=== PATIENT | female | born 1960 | race Caucasian/White ===

== ENCOUNTER 2024-02-03 23:45 | Emergency (ER) | payer OTHER, SELFPAY ==
[2024-02-03 23:46] VITALS: BP 158/98; PULSE 66; RESP 20; TEMP 36.5; O2SAT 97; BMI 30.2
[2024-02-03 23:56] VITALS: BP 154/125; PULSE 60; O2SAT 93
--- NOTE | 2024-02-04 00:19 | ED_ITS ---
HPI - Extremity Problem General: Chief complaint: Extremity Injury, Lower Stated complaint: legs and hip pain Time Seen by Provider: 02/03/24 23:58 Source: patient Mode of arrival: ambulatory Limitations: no limitations History of Present Illness: Patient is a 63-year-old female who presents the emergency department complaining of right lower extremity pain and low back pain that has been bothering her for multiple years. No recent trauma or injury, states that she has not slept in a couple of days due to how severe the pain is. She did receive a shot of steroids at urgent care the day and prescribed baclofen, states the shot did help initially but has worn off and the baclofen does not seem to be helping. Also is reporting some numbness to her right lower extremity, no calf pain, no history of blood clots, no other concerning symptoms at this time. Complaining of severe 10/10 pain at this time that comes in waves. MD Complaint: extremity pain Onset (ago): year(s) Pain Consistency: intermittent Location: right and lower extremity Severity scale (1-10): 10 Quality: stabbing and sharp Radiation: distal Exacerbating factors: range of motion, weight bearing, walking and exertion Associated symptoms: Deny chest pain, fever(s) or rash Related Data Previous Rx's Medication Instructions Recorded prednisone 20 mg tablet 60 mg (3 x 20 mg) PO ONCE 5 days 02/04/24 #15 tabs Allergies Allergy/AdvReac Type Severity Reaction Status Date / Time No Known Allergies Allergy Verified 02/03/24 23:58 Review of Systems General: Reports: 10 or more systems reviewed and unremarkable except in HPI and below Const: Denies: fever(s) or chills Card: Denies: chest pain Resp: Denies: dyspnea or productive cough GI: Denies: abdominal pain, nausea, vomiting or diarrhea : Denies: flank pain Musc: Reports: back pain and extremity pain; Denies: neck pain, extremity swelling, joint pain, joint swelling, joint redness, joint warmth, limited range of motion or muscle weakness Skin/Breast: Denies: rash Neuro: Reports: numbness in extremities; Denies: headache(s) or weakness in extremities Physical Exam Const: COMMON NORMALS: patient oriented x3, no limitations, healthy appearing, alert and well nourished OTHER: Patient lying in ER bed, nontoxic-appearing and occasionally twitching from pain HENMT: COMMON NORMALS: normocephalic and atraumatic HEAD & SCALP: normocephalic and atraumatic Neck/C-Spine: COMMON NORMALS: full ROM, supple and no meningeal signs Resp: COMMON NORMALS: normal respiratory effort, No use of accessory muscles and clear to auscultation bilaterally AUSCULTATION: clear to auscultation bilaterally Cardio: COMMON NORMALS: regular rate and regular rhythm RATE: regular rate RHYTHM: regular rhythm Back/Pelvis: OTHER: Straight leg raise testing is positive on the right with very minimal lifting of the right lower extremity. Mild reproducible tenderness to palpation of the lumbar spinous process, severe reproducible tenderness to palpation of the right lower back. Extremity: COMMON NORMALS: full ROM, capillary refill normal, no joint enlargement, no clubbing, cyanosis or edema, no calf tenderness and no pedal edema NARRATIVE EXTREMITY EXAM: DTRs intact. 2+ DP/PT pulses distally. Varicosities distally. No calf swelling, tenderness to palpation of the right calf, or other signs of DVT. Neuro: COMMON NORMALS: patient oriented x3, moves all extremities, no focal motor deficits and no sensory deficits noted SENSORIUM/ORIENTATION: Yes alert MENINGEAL SIGNS: Yes no meningeal signs Skin: COMMON NORMALS: no rashes or lesions noted GENERAL SKIN EXAM: no rashes or lesions noted Course Vital Signs: Vital signs: Vital Signs Temperature 97.7 F 02/03/24 23:46 Pulse Rate 66 02/03/24 23:46 Respiratory Rate 20 H 02/03/24 23:46 Blood Pressure 158/98 02/03/24 23:46 Pulse Oximetry 97 02/03/24 23:46 Oxygen Delivery Me thod Room Air 02/03/24 23:46 MDM - Extremity (Nontraumatic) Medical Decision Making Patient has a history of longstanding sciatica of the right lower extremity, states that she has not been sleeping due to how severe the pain has been recently. Does note relief from the shot that she received of steroid recently in urgent care, she will be given shots of Decadron again as well as Toradol and Norflex, and will prescribe her short course of steroid taper to take at home. Also, as she does not have a primary care, will refer her to Ortho/spine at her request for further evaluation as she states she has been dealing with this for almost a decade. She had no red flag back symptoms to report, and no concerning physical exam findings that warrant imaging or further workup at this time. Reasons to return discussed. No radiology studies performed this visit Discharge Plan Discharge Patient Disposition: Home Clinical Impression: Right lumbar radiculopathy Condition: Stable Prescriptions: New prednisone 20 mg tablet 60 mg PO ONCE 5 Days Qty: 15 0RF Discharge Orders: Discharge ED (Routine); Ordered 02/04/24 Ordered By: Topher Macias Referrals: Chris Brady DO [Family Provider] - Patient Instructions: Lumbar Radiculopathy (ED) Activity Restrictions/Additional Instructions: Take steroids as prescribed. Please continue taking your baclofen. Ibuprofen as well, and gentle range of motion exercises as you can tolerate. Ice/heat to your low back. Follow-up with Ortho/spine, and return with any new or worseni ng. Coding Level of Care Code ED Digital Marketing Project Manager for Talita Grullon
[2024-02-04] MEDS: ketorolac 60 mg/2 mL INJ IM (00:22)
[2024-02-04] MEDS: orphenadrine 30 mg/mL Inj 2 mL 60 MG IM (00:23)
[2024-02-04] MEDS: dexamethasone 10 mg/mL INJ IM (00:24)
[2024-02-04 00:46] VITALS: BP 137/105; PULSE 56; O2SAT 94
--- NOTE | 2024-02-05 09:51 | DCPLANNER ---
messaged ortho for er f/u
== END 2024-02-04 00:45 | disposition home or self-care (01) ==
PROVIDERS: Emergency Provider Physician Assistant; Family Provider Family Medicine
DX: M54.16 Radiculopathy, lumbar region (principal)
CPT/HCPCS: 96372; 99284; J1100; J1885; J2360

== ENCOUNTER 2024-02-10 09:47 | Observation (INO) | payer OTHER, SELFPAY ==
[2024-02-10] VITALS (10 sets, daily range): BP systolic 112–174; BP diastolic 79–107; PULSE 59–90; RESP 16–18; TEMP 36.4–36.8; O2SAT 90–99; BMI 34.5
--- NOTE | 2024-02-10 09:49 | XR_ITS ---
WS: [id number] Exam: XR chest 1V portable [id number] Date/Time of Exam: 02/10/2024 10:06 AM Reason For Exam: chest pain No priors. Lungs are clear and fully inflated. Probable mild cardiac enlargement. No pleural effusions. The medi astinum is normal in contour. Advanced DJD of both shoulders. XR/XR chest 1V portable [id number] IMPRESSION: 1. Mild cardiac enlargement. No acute process.
--- NOTE | 2024-02-10 09:51 | ECG_ITS ---
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
--- NOTE | 2024-02-10 09:55 | ED_ITS ---
Documented by User: MARISELA Pope 02/10/24 13:20 HPI - Chest Pain 2 General: Chief Complaint: Chest Pain Stated Complaint: chest pain Time Seen by Provider: 02/10/24 09:49 Source: patient Mode of arrival: ambulatory Limitations: no limitations History of Present Illness: Patient is a nice 63-year-old female presents to ED today with a complaint of chest pain. Patient states she was walking in [facility] to the pharmacy to orange picker a prescription as she has been having some right sided sciatic pains over the past week or so. She states she began developing pain to the left side of her chest with radiation into her shoulder blades thus called 911. She was given 3 nitro and route by EMS as well as aspirin and upon my initial assessment of patient, she is pain-free. Patient tells me she was diagnosed with a heart attack at the age of 30 but then later told by Dr. 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 She does not have any cardiac stenting. She states she has not had any cardiac issues since then. She has no other chronic illnesses that she is aware of but admittedly does not have a primary care provider. Patient is not complaining of shortness of breath or difficulty breathing. She has been taking large amounts of anti-inflammatories/ibuprofen due to her sciatic pain. MD complaint: chest pain and other (upper abdomen?) Onset (ago): hour(s) Timing of current episode: now resolved (after nitro by EMS) Prior episodes: No Onset: other (walking in [facility]) Pain location: left chest Pain radiation: back Relieving factors: nitroglycerin Exacerbating factors: nothing Associated symptoms: Deny abdominal pain, dyspnea, fever(s), nausea, palpitations, syncope or vomiting Treatment prior to arrival: aspirin and nitroglycerin Risk Factors: Thoracic aortic dissection risk factors: none Related Data Home Medications Medication Instructions Recorded Confirmed ibuprofen 200 mg capsule 200 mg PO Q6H PRN Pain 02/09/24 02/10/24 baclofen 5 mg tablet 5 mg PO TID PRN muscle spasms 02/10/24 02/10/24 diclofenac sodium 1 % topical gel 2 g topical QID 02/10/24 02/10/24 Allergies Allergy/AdvReac Type Severity Reaction Status Date / Time No Known Allergies Allergy Verified 02/09/24 08:36 Review of Systems 2 Const: Denies: fever(s), chills, body aches, fatigue or malaise Eyes: Denies: change in vision or blurry vision Card: Reports: chest pain; Denies: palpitations, irregular heart rhythm, edema, swelling of feet/ankles, lightheadedness, syncope, pre-syncope, dyspnea on exertion, orthopnea, leg pain with exertion or acrocyanosis Resp: Denies: dyspnea, productive cough or pain on inspiration GI: Denies: abdominal pain, nausea, vomiting, heartburn or diarrhea : Denies: flank pain, difficulty voiding, dysuria, urinary frequency, urinary urgency or urinary hesitancy Musc: Reports: back pain (R lower back/sciatica); Denies: neck pain, extremity pain, extremity swelling, joint pain or joint swelling Skin/Breast: Denies: rash Neuro: Denies: headache(s), numbness in extremities, weakness in extremities, sensory changes or dizziness PFSH ED 2 PFSH: Medical History (Updated 02/10/24 @ 17:48 by Pattie Pineda MD) 1 para 1 Chronic low back pain with sciatica Surgical History (Updated 02/10/24 @ 17:38 by Pattie Pineda MD) Hx of repair of right rotator cuff x2 Hx of repair of left rotator cuff x1 H/O laparoscopy with large ovarian cyst/benign tumor removal History of hysterectomy Family History (Updated 02/10/24 @ 17:39 by Pattie Pineda MD) Father CAD (coronary artery disease) quadruple bypass age 63 Social History (Updated 02/10/24 @ 17:39 by Pattie Pineda MD) Smoking and tobacco/nicotine status: former use of tobacco/nicotine Alcohol intake: never Substance/Drug Use: never Lives independently: Yes Physical Exam 2 Const: COMMON NORMALS: no acute distress, patient oriented x3, no limitations, alert and well nourished GENERAL APPEARANCE: cooperative NUTRITIONAL APPEARANCE: overweight ORIENTATION/CONSCIOUSNESS: Yes awake, Yes oriented to person, Yes oriented to place and Yes oriented to time HENMT: COMMON NORMALS: normocephalic and atraumatic HEAD & SCALP: n ormocephalic and atraumatic Neck/C-Spine: COMMON NORMALS: full ROM, no lymphadenopathy, supple and no meningeal signs Chest: COMMONS NORMALS: normal inspection of the chest Chest images (female): 1. points to area of discomfort Resp: COMMON NORMALS: normal respiratory effort and clear to auscultation bilaterally AUSCULTATION: clear to auscultation bilaterally Cardio: COMMON NORMALS: regular rate and regular rhythm RATE: regular rate RHYTHM: regular rhythm GI: COMMON NORMALS: Normal to inspection, nondistended, normoactive bowel sounds present, Soft to palpation, No hepatosplenomegaly present and no masses PALPATION: Yes Soft to palpation, Yes Tenderness to palpation present (GI) (epigastric/L upper-mild), No Guarding due to palpation present (GI), No Rigid due to palpation and Yes No hepatosplenomegaly present : COMMON NORMALS: Yes no CVA tenderness BLADDER/KIDNEY EXAM: Yes no CVA tenderness Back/Pelvis: COMMON NORMALS: no CVA tenderness and thoracic and lumbar spine normal to inspection Extremity: COMMON NORMALS: normal to inspection GENERAL: Yes normal exam except as noted Neuro: HEDY COMA SCALE: document GCS findings Valders coma scale eye opening: Spontaneous Hedy coma scale verbal response: Orientated Hedy coma scale motor response: Obey commands Valders coma scale total score: 15 COMMON NORMALS: patient oriented x3, moves all extremities, no focal motor deficits and no sensory deficits noted SENSORIUM/ORIENTATION: Yes alert, Yes oriented to person, Yes oriented to place and Yes oriented to time MENINGEAL SIGNS: Yes no meningeal signs Skin: COMMON NORMALS: no rashes or lesions noted GENERAL SKIN EXAM: no rashes or lesions noted Course 2 Consultations: Consultation #1: Dr. Pineda-accepts admission to [facility] Vital Signs: Vital signs: Vital Signs Temperature 97.6 F 02/11/24 04:00 Pulse Rate 57 L 02/11/24 04:00 Respiratory Rate 16 02/11/24 04:00 Blood Pressure 114/74 02/11/24 04:00 Pulse Oximetry 95 02/11/24 04:00 Oxygen Delivery Me thod Room Air 02/11/24 04:00 MDM - Chest Pain Medical Decision Making Patient is a nice 63-year-old female with no known significant past medical history here for left-sided chest pain alleviated by nitroglycerin given by EMS. She has been pain-free throughout her emergency department stay. Her initial troponin was elevated at 19. This did trend down. She does have T wave inversions involving her anterior leads on EKG. No previous for comparison. Spoke to Dr. Gomez who is recommending admission. Spoke to Dr. Pineda who will admit her to observation. CXR showing some mild cardic enlargement-adding BNP. Medical Records I reviewed the patient's medical records. Lab Data I reviewed the patient's lab results. 02/10/24 10:08 02/10/24 10:08 Radiology Impressions Chest X-Ray 02/10/24 09:49 IMPRESSION: 1. Mild cardiac enlargement. No acute process. Laboratory Results WBC 8.89 10^3/uL (3.29-11.43) 02/10/24 10:08 RBC 4.94 10^6/uL (3.85-5.65) 02/10/24 10:08 Hgb 16.50 g/dL (11.27-16.99) 02/10/24 10:08 Hct 48.1 % (36-47) H 02/10/24 10:08 MCV 97.4 fl (85-98) 02/10/24 10:08 MCH 33.4 pg (27-33) H 02/10/24 10:08 MCHC 34.3 g/dL (30-55) 02/10/24 10:08 RDW 13.0 % (12.1-15.1) 02/10/24 10:08 Plt Count 315 10^3/cmm (157-399) 02/10/24 10:08 MPV 11.1 fL (7.4-10.4) H 02/10/24 10:08 Neut % (Auto) 41.9 % 02/10/24 10:08 Lymph % (Auto) 49.8 % 02/10/24 10:08 [place] % (Auto) 5.6 % 02/10/24 10:08 Eos % (Auto) 1.6 % 02/10/24 10:08 Baso % (Auto) 0.3 % 02/10/24 10:08 Neut # (Auto) 3.72 10^3/uL (1.8-7.7) 02/10/24 10:08 Lymph # (Auto) 4.4 10^3/uL (0.8-4.8) 02/10/24 10:08 [place] # (Auto) 0.5 10^3/uL (0.2-0.9) 02/10/24 10:08 Eos # (Auto) 0.1 10^3/uL (0.0-0.8) 02/10/24 10:08 Baso # (Auto) 0.0 10^3/uL (0.0-0.1) 02/10/24 10:08 Nucleated RBC % (auto) 0 % 02/10/24 10:08 Nucleated RBCs # 0.0 /100WBC 02/10/24 10:08 Sodium 140 mmol/L (136-145) 02/10/24 10:08 Potassium 3.8 mmol/L (3.5-5.1) 02/10/24 10:08 Chloride 103 mmol/L (98-107) 02/10/24 10:08 Carbon Dioxide 23 mmol/L (22-29) 02/10/24 10:08 Anion Gap 17.8 (5-19) 02/10/24 10:08 BUN 15 mg/dL (8-23) 02/10/24 10:08 Creatinine 0.7 mg/dL (0.5-0.9) 02/10/24 10:08 GFR Calculation 84.5 mL/min (90-130) L 02/10/24 10:08 Glucose 91 mg/dL (65-115) 02/10/24 10:08 Calculated Osmolality 290 mOsm/kg (285-295) 02/10/24 10:08 Calcium 9.6 mg/dL (8.5-10.5) 02/10/24 10:08 Total Bilirubin 0.5 mg/dL (0.15-1.2) 02/10/24 10:08 AST 14 U/L (0-32) 02/10/24 10:08 ALT 16 U/L (0-33) 02/10/24 10:08 Alkaline Phosphatase 90 U/L (35-105) 02/10/24 10:08 Troponin T Baseline 19 ng/L (0-10) H 02/10/24 10:08 Troponin T 120 Minute 16.58 ng/L (0-10) H 02/10/24 12:10 Delta Troponin T -2.42 ABS# (0-10) L 02/10/24 12:10 NT-Pro-B Natriuret Pep 142 pg/mL (0-125) H 02/10/24 12:10 Total Protein 7.7 g/dL (6.6-8.7) 02/10/24 10:08 Albumin 4.7 g/dL (3.5-5.2) 02/10/24 10:08 Globulin 3.0 g/dL (1.3-4.6) 02/10/24 10:08 All radiology interpretation(s) finalized by discharge Discharge Plan Discharge Patient Disposition: Placed in Observation Admit Provider: Pattie Pineda Clinical Impression: Chest pain Qualifiers: Chest pain type: unspecified Qualified Code(s): R07.9 - Chest pain, unspecified Coding Level of Care Code ED Block Sorter for Chg Fwd Documented by User: Marek Gomez DO 02/11/24 05:32 HPI - Chest Pain 2 General: Chief Complaint: Chest Pain Stated Complaint: chest pain Time Seen by Provider: 02/10/24 09:49 Related Data Home Medications Medication Instructions Recorded Confirmed ibuprofen 200 mg capsule 200 mg PO Q6H PRN Pain 02/09/24 02/10/24 baclofen 5 mg tablet 5 mg PO TID PRN muscle spasms 02/10/24 02/10/24 diclofenac sodium 1 % topical gel 2 g topical QID 02/10/24 02/10/24 Allergies Allergy/AdvReac Type Severity Reaction Status Date / Time No Known Allergies Allergy Verified 02/09/24 08:36 PFSH ED 2 PFSH: Medical History (Updated 02/10/24 @ 17:48 by Pattie Pineda MD) 1 para 1 Chronic low back pain with sciatica Surgical History (Updated 02/10/24 @ 17:38 by Pattie Pineda MD) Hx of repair of right rotator cuff x2 Hx of repair of left rotator cuff x1 H/O laparoscopy with large ovarian cyst/benign tumor removal History of hysterectomy Family History (Updated 02/10/24 @ 17:39 by Pattie Pineda MD) Father CAD (coronary artery disease) quadruple bypass age 63 Social History (Updated 02/10/24 @ 17:39 by Pattie Pineda MD) Smoking and tobacco/nicotine status: former use of tobacco/nicotine Alcohol intake: never Substance/Drug Use: never Lives independently: Yes Physical Exam 2 Chest: Chest images (female): 1. points to area of discomfort Neuro: HEDY COMA SCALE: document GCS findings Hedy coma scale total score: 15 Course 2 Vital Signs: Vital signs: Vital Signs Temperature 97.6 F 02/11/24 04:00 Pulse Rate 57 L 02/11/24 04:00 Respiratory Rate 16 02/11/24 04:00 Blood Pressure 114/74 02/11/24 04:00 Pulse Oximetry 95 02/11/24 04:00 Oxygen Delivery Me thod Room Air 02/11/24 04:00 MDM - Chest Pain Medical Decision Making Patient is a nice 63-year-old female with no known significant past medical history here for left-sided chest pain alleviated by nitroglycerin given by EMS. She has been pain-free throughout her emergency department stay. Her initial troponin was elevated at 19. This did trend down. She does have T wave inversions involving her anterior leads on EKG. No previous for comparison. Spoke to Dr. Gomez who is recommending admission. Spoke to Dr. Pineda who will admit her to observation. CXR showing some mild cardic enlargement-adding BNP. Chart reviewed and patient discussed with midlevel. Agree with assessment and plan. Lab Data 02/10/24 10:08 02/10/24 10:08 Radiology Impressions Chest X-Ray 02/10/24 09:49 IMPRESSION: 1. Mild cardiac enlargement. No acute process. Laboratory Results WBC 8.89 10^3/uL (3.29-11.43) 02/10/24 10:08 RBC 4.94 10^6/uL (3.85-5.65) 02/10/24 10:08 Hgb 16.50 g/dL (11.27-16.99) 02/10/24 10:08 Hct 48.1 % (36-47) H 02/10/24 10:08 MCV 97.4 fl (85-98) 02/10/24 10:08 MCH 33.4 pg (27-33) H 02/10/24 10:08 MCHC 34.3 g/dL (30-55) 02/10/24 10:08 RDW 13.0 % (12.1-15.1) 02/10/24 10:08 Plt Count 315 10^3/cmm (157-399) 02/10/24 10:08 MPV 11.1 fL (7.4-10.4) H 02/10/24 10:08 Neut % (Auto) 41.9 % 02/10/24 10:08 Lymph % (Auto) 49.8 % 02/10/24 10:08 [place] % (Auto) 5.6 % 02/10/24 10:08 Eos % (Auto) 1.6 % 02/10/24 10:08 Baso % (Auto) 0.3 % 02/10/24 10:08 Neut # (Auto) 3.72 10^3/uL (1.8-7.7) 02/10/24 10:08 Lymph # (Auto) 4.4 10^3/uL (0.8-4.8) 02/10/24 10:08 [place] # (Auto) 0.5 10^3/uL (0.2-0.9) 02/10/24 10:08 Eos # (Auto) 0.1 10^3/uL (0.0-0.8) 02/10/24 10:08 Baso # (Auto) 0.0 10^3/uL (0.0-0.1) 02/10/24 10:08 Nucleated RBC % (auto) 0 % 02/10/24 10:08 Nucleated RBCs # 0.0 /100WBC 02/10/24 10:08 Sodium 140 mmol/L (136-145) 02/10/24 10:08 Potassium 3.8 mmol/L (3.5-5.1) 02/10/24 10:08 Chloride 103 mmol/L (98-107) 02/10/24 10:08 Carbon Dioxide 23 mmol/L (22-29) 02/10/24 10:08 Anion Gap 17.8 (5-19) 02/10/24 10:08 BUN 15 mg/dL (8-23) 02/10/24 10:08 Creatinine 0.7 mg/dL (0.5-0.9) 02/10/24 10:08 GFR Calculation 84.5 mL/min (90-130) L 02/10/24 10:08 Glucose 91 mg/dL (65-115) 02/10/24 10:08 Calculated Osmolality 290 mOsm/kg (285-295) 02/10/24 10:08 Calcium 9.6 mg/dL (8.5-10.5) 02/10/24 10:08 Total Bilirubin 0.5 mg/dL (0.15-1.2) 02/10/24 10:08 AST 14 U/L (0-32) 02/10/24 10:08 ALT 16 U/L (0-33) 02/10/24 10:08 Alkaline Phosphatase 90 U/L (35-105) 02/10/24 10:08 Troponin T Baseline 19 ng/L (0-10) H 02/10/24 10:08 Troponin T 120 Minute 16.58 ng/L (0-10) H 02/10/24 12:10 Delta Troponin T -2.42 ABS# (0-10) L 02/10/24 12:10 NT-Pro-B Natriuret Pep 142 pg/mL (0-125) H 02/10/24 12:10 Total Protein 7.7 g/dL (6.6-8.7) 02/10/24 10:08 Albumin 4.7 g/dL (3.5-5.2) 02/10/24 10:08 Globulin 3.0 g/dL (1.3-4.6) 02/10/24 10:08 Discharge Plan Discharge Patient Disposition: Placed in Observation Admit Provider: Pattie Pineda Clinical Impression: Chest pain Qualifiers: Chest pain type: unspecified Qualified Code(s): R07.9 - Chest pain, unspecified Coding Level of Care Code ED Block Sorter for [facility] Mitchel
[2024-02-10 10:19] LABS: Basophils % 0.3 %; Eosinophils # 0.1 10^3/uL (0.0-0.8); Eosinophils % 1.6 %; Hematocrit 48.1 % (36-47); Lymphocytes # 4.4 10^3/uL (0.8-4.8); Lymphocytes % 49.8 %; Mean Corpuscular HGB Conc 34.3 g/dL (30-55); Mean Corpuscular Hemoglobin 33.4 pg (27-33); Mean Corpuscular Volume 97.4 fl (85-98); Mean Platelet Volume 11.1 fL (7.4-10.4); Monocytes # 0.5 10^3/uL (0.2-0.9); Monocytes % 5.6 %; Neutrophils # 3.72 10^3/uL (1.8-7.7); Neutrophils % 41.9 %; Nucleated Red Blood Cells % 0 %; Platelet Count 315 10^3/cmm (157-399); Red Blood Count 4.94 10^6/uL (3.85-5.65); White Blood Count 8.89 10^3/uL (3.29-11.43)
[2024-02-10 10:37] LABS: Alanine Aminotransferase 16 U/L (0-33); Albumin Level 4.7 g/dL (3.5-5.2); Alkaline Phosphatase 90 U/L (35-105); Anion Gap 17.8 (5-19); Aspartate Amino Transferase 14 U/L (0-32); Blood Urea Nitrogen 15 mg/dL (8-23); Calcium 9.6 mg/dL (8.5-10.5); Carbon Dioxide 23 mmol/L (22-29); Chloride 103 mmol/L (98-107); Creatinine Clr Calc Pharmacy 77.1562; Glomerular Filtration Rate 84.5 mL/min (90-130); Glucose 91 mg/dL (65-115); Osmolality Calculated 290 mOsm/kg (285-295); Potassium 3.8 mmol/L (3.5-5.1); Sodium 140 mmol/L (136-145); Total Bilirubin 0.5 mg/dL (0.15-1.2); Total Protein 7.7 g/dL (6.6-8.7)
[2024-02-10 10:41] LABS: Troponin(5th) Baseline 19 ng/L (0-10)
--- NOTE | 2024-02-10 11:49 | ECG_ITS ---
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 Measurements Intervals [place] Rate: 49 P: 27 MN: 189 QRS: -27 QRSD: 78 T: -13 QT: 417 QTc: 379 Interpretive Statements SINUS BRADYCARDIA BORDERLINE LEFT AXIS DEVIATION [QRS AXIS < -20] MODERATE T-WAVE ABNORMALITY, CONSIDER ANTEROLATERAL ISCHEMIA [-0.1+ mV T-WAVE IN V3-V6] Compared to ECG 02/10/2024 09:51:23 Possible ischemia now present Sinus rhythm no longer present T-wave abnormality still present Electronically Signed On 02-11-2024 18:05:57 PROPOSAL EDITOR by Hever Pandya M.D. [email or web address]
[2024-02-10 12:35] LABS: Troponin 5 2HR 16.58 ng/L (0-10)
[2024-02-10 12:38] LABS: Troponin 5 2HR Delta -2.42 ABS# (0-10)
[2024-02-10 14:03] LABS: NT Pro B Type Natriuretic Pept 142 pg/mL (0-125)
--- NOTE | 2024-02-10 15:12 | ECG_ITS ---
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 Interpretive Statements Lung unchanged pre/post procedure; Intraprocedure shortess of breath; Symptoms resoled by discharge [id number]
--- NOTE | 2024-02-10 15:12 | USCV_ITS ---
Saskia Arguello Age: 63 Gender: F : 1960 Exam Date: 02/10/2024 17:54 Ordering Phys: Pattie Pineda MD Technologist: CT Exam Location: [facility] [place] Indication: elevated trop BP: 130 / 82 HR: 78 Rhythm: Sinus Technical Quality: Technically difficult study MEASUREMENTS (Male / Female) Normal Values 2D ECHO LVOT Diameter 2.0 cm LV Ejection Fraction MOD 4C 43.0 % LV Ejection Fraction MOD 2C 57.1 % LV Ejection Fraction 2C AL 59.6 % LA Diameter 3.5 cm RA Systolic Volume 4C AL 36.6 ml RA Systolic Volume 4C MOD 34.8 ml LA Sys Volume AL 35.8 cm cubed LA Sys Volume Index AL 19.0 cm cubed/m squared Aorta at Sinotubular Diameter 3.9 cm M-MODE LA Ao Ratio MM 1.3 AV Cusp Separation MM 2.2 cm DOPPLER AV Peak Velocity 126.3 cm/s LVOT Peak Velocity 84.0 cm/s AV Area Cont Eq vti 1.8 cm squared AV Area Cont Eq pk 2.1 cm squared MV Peak Velocity 70.0 cm/s MV Area PHT 2.8 cm squared Mitral E to A Ratio 0.7 TV Peak E Velocity 79.0 cm/s Right Atrial Pressure 3.0 mmHg PV Peak Velocity 107.5 cm/s FINDINGS Left Ventricle Normal LV size ejection fraction of 57%. Slightly dyskinetic basal inferolateral segment.Moderate left ventricular hypertrophy. Grade I/IV diastolic dysfunction (abnormal relaxation filling pattern), normal to mildly elevated filling pressures. Right Ventricle The right ventricle is normal in size and function. Right Atrium The right atrium is normal in size. Left Atrium The left atrium is normal in size. Mitral Valve No gross abnormalities noted Aortic Valve No gross abnormalities noted Tricuspid Valve No gross abnormalities noted Pulmonic Valve No gross abnormalities noted Pericardium No gross abnormalities noted Aorta Ascending aorta measures 3.86 cm IVC Not well-visualized CONCLUSIONS Normal LV size ejection fraction of 57%. Slightly dyskinetic basal inferolateral segment.Moderate left ventricular hypertrophy. Grade I/IV diastolic dysfunction (abnormal relaxation filling pattern), normal to mildly elevated filling pressures. Normal cardiac chamber sizes with No gross valvular abnormalities. No pericardial effusion. No similar previous studies are available for comparison Dr Hever Pandya MD FACC (Electronically Signed) Final Date: 10 February 2024 20:00 S
--- NOTE | 2024-02-10 15:13 | PM.HP ---
Providers/Chief Complaint Admitting Physician: Pattie Pineda MD Primary Care Provider: Chris Brady DO Chief Complaint: chest pain History of Present Illness Saskia Arguello is a 63 year old female who presented with chest pain that began while walking in [facility] to the pharmacy. She had been told a prescription was going to cost $200. She chose not to fill the script and a short time later the pain began. It was located on the left side of the chest, substernal areas, radiating to the shoulder blades and across the chest. Band like feeling. Severe. She has had similar pain about once a month but usually not this bad. She attempted self-treatment with an [id number] acid reflux medication, which was ineffective. EMS was called and ultimately administered three doses of nitroglycerin en route to the hospital, providing relief of chest pain. She denies shortness of breath, nausea, or excessive sweating at the time of chest pain, but does not recall many details because she was so upset over the chest pain and subsequent focus on her. She experienced headache with nitro, but on arrival here, chest pain had resolved. The patient has a history of a heart attack at age 30, described by Dr Pandya as a short in her heart, but stress testing and angiogram at the time were negative. She has no known chronic cardiac conditions, no hypertension, no hyperlipidemia, no diabetes, no kidney disease. She does not routinely seek medical care however. There has been minimal medical intervention or examinations related to her cardiac history since the event 30 years ago. She denied regular physician follow-up or monitoring of her heart health. Her primary medical concern aside from the current episode is chronic low back pain/sciatica, for which she has been using NSAIDs and recently completed a five-day course of prednisone. She has a family history of CAD with her father having quadrupel bypass age 63. Remote smoking history for a short time frame, no drugs or alcohol. She is being admitted for further evaluation. Review of Systems General: Reports: Other (ROS as per HPI or as otherwise noted here) Card: Reports: chest pain, swelling of feet/ankles, lightheadedness (with headache from nitro) and dyspnea on exertion GI: Denies: change in bowel habits, hematochezia or melena : Denies: difficulty voiding Derian/Lymph: Denies: easy bruising or easy bleeding Medications/Allergies Home Medications Medication Instructions Recorded Confirmed Last Taken Type ibuprofen 200 mg capsule 200 mg PO Q6H PRN Pain 02/09/24 02/10/24 Unknown History baclofen 5 mg tablet 5 mg PO TID PRN muscle spasms 02/10/24 02/10/24 Unknown History diclofenac sodium 1 % topical gel 2 g topical QID 02/10/24 02/10/24 02/09/24 History Allergies Allergy/AdvReac Type Severity Reaction Status Date / Time No Known Allergies Allergy Verified 02/09/24 08:36 PFSH Acute PFSH: Medical History (Updated 02/10/24 @ 17:48 by Pattie Pineda MD) 1 para 1 Chronic low back pain with sciatica Surgical History (Updated 02/10/24 @ 17:38 by Pattie Pineda MD) Hx of repair of right rotator cuff x2 Hx of repair of left rotator cuff x1 H/O laparoscopy with large ovarian cyst/benign tumor removal History of hysterectomy Family History (Updated 02/10/24 @ 17:39 by Pattie Pineda MD) Father CAD (coronary artery disease) quadruple bypass age 63 Social History (Updated 02/10/24 @ 17:39 by Pattie Pineda MD) Smoking and tobacco/nicotine status: former use of tobacco/nicotine Alcohol intake: never Substance/Drug Use: never Lives independently: Yes Other PFS information: Supplemental [facility] Information: M[facility] here from [facility] in 2022 Vitals/I&O/Wt Last Vital Signs Temp 97.6 F 02/10/24 09:55 Pulse 59 L 02/10/24 14:51 Resp 18 02/10/24 14:51 BP 162/107 02/10/24 14:51 Pulse Ox 95 02/10/24 14:51 O2 Del Method Room Air 02/10/24 14:51 Weight last 48 hrs Weight 80.286 kg Physical Exam Narrative: Constitutional: Awake and alert, cooperative HEENT: Normocephalic, atraumatic, pupils are equally reactive, nasopharynx is clear, oropharynx with moist mucous membranes Neck: Supple Respiratory: Clear to auscultation bilaterally without any rales rhonchi or wheezes noted Cardiovascular: Regular rate and rhythm without any murmurs gallops or rubs Abdomen: Soft, nontender, nondistended with positive bowel sounds Extremities: Trace pitting edema Skin: Dry, no acute rashes or bruises noted Neuro: Speech clear, face symmetric, moves all extremities though limited ROM R leg Psych: Normal affect, oriented x3 Data 02/10/24 10:08 02/10/24 10:08 Other Labs: Radiology Impressions Chest X-Ray 02/10/24 09:49 IMPRESSION: 1. Mild cardiac enlargement. No acute process. Laboratory Results WBC 8.89 10^3/uL (3.29-11.43) 02/10/24 10:08 RBC 4.94 10^6/uL (3.85-5.65) 02/10/24 10:08 Hgb 16.50 g/dL (11.27-16.99) 02/10/24 10:08 Hct 48.1 % (36-47) H 02/10/24 10:08 MCV 97.4 fl (85-98) 02/10/24 10:08 MCH 33.4 pg (27-33) H 02/10/24 10:08 MCHC 34.3 g/dL (30-55) 02/10/24 10:08 RDW 13.0 % (12.1-15.1) 02/10/24 10:08 Plt Count 315 10^3/cmm (157-399) 02/10/24 10:08 MPV 11.1 fL (7.4-10.4) H 02/10/24 10:08 Neut % (Auto) 41.9 % 02/10/24 10:08 Lymph % (Auto) 49.8 % 02/10/24 10:08 [place] % (Auto) 5.6 % 02/10/24 10:08 Eos % (Auto) 1.6 % 02/10/24 10:08 Baso % (Auto) 0.3 % 02/10/24 10:08 Neut # (Auto) 3.72 10^3/uL (1.8-7.7) 02/10/24 10:08 Lymph # (Auto) 4.4 10^3/uL (0.8-4.8) 02/10/24 10:08 [place] # (Auto) 0.5 10^3/uL (0.2-0.9) 02/10/24 10:08 Eos # (Auto) 0.1 10^3/uL (0.0-0.8) 02/10/24 10:08 Baso # (Auto) 0.0 10^3/uL (0.0-0.1) 02/10/24 10:08 Nucleated RBC % (auto) 0 % 02/10/24 10:08 Nucleated RBCs # 0.0 /100WBC 02/10/24 10:08 Sodium 140 mmol/L (136-145) 02/10/24 10:08 Potassium 3.8 mmol/L (3.5-5.1) 02/10/24 10:08 Chloride 103 mmol/L (98-107) 02/10/24 10:08 Carbon Dioxide 23 mmol/L (22-29) 02/10/24 10:08 Anion Gap 17.8 (5-19) 02/10/24 10:08 BUN 15 mg/dL (8-23) 02/10/24 10:08 Creatinine 0.7 mg/dL (0.5-0.9) 02/10/24 10:08 GFR Calculation 84.5 mL/min (90-130) L 02/10/24 10:08 Glucose 91 mg/dL (65-115) 02/10/24 10:08 Calculated Osmolality 290 mOsm/kg (285-295) 02/10/24 10:08 Calcium 9.6 mg/dL (8.5-10.5) 02/10/24 10:08 Total Bilirubin 0.5 mg/dL (0.15-1.2) 02/10/24 10:08 AST 14 U/L (0-32) 02/10/24 10:08 ALT 16 U/L (0-33) 02/10/24 10:08 Alkaline Phosphatase 90 U/L (35-105) 02/10/24 10:08 Troponin T Baseline 19 ng/L (0-10) H 02/10/24 10:08 Troponin T 120 Minute 16.58 ng/L (0-10) H 02/10/24 12:10 Delta Troponin T -2.42 ABS# (0-10) L 02/10/24 12:10 NT-Pro-B Natriuret Pep 142 pg/mL (0-125) H 02/10/24 12:10 Total Protein 7.7 g/dL (6.6-8.7) 02/10/24 10:08 Albumin 4.7 g/dL (3.5-5.2) 02/10/24 10:08 Globulin 3.0 g/dL (1.3-4.6) 02/10/24 10:08 A&P Assessment and plan (1) Chest pain: Initiated classical cardiac work-up given past/family history and current symptomatology with echocardiogram, pharmacologic stress test to evaluate potential for ischemia, and serial troponins. NSAIDs held to avoid exacerbating any potential gastric involvement, PPI added. Continue prn Nitroglycerin. Daily aspirin. Check A1c and lipid panel. Qualifiers: Chest pain type: unspecified Qualified Code(s): R07.9 - Chest pain, unspecified (2) Elevated blood pressure reading without diagnosis of hypertension: New diagnosis hypertension, primary most likely. Monitor overnight before added treatment. Anticipate will need new prescription for hypertension at discharge. (3) Right lumbar radiculopathy: Provided guidance regarding holding NSAIDs while here, pending cardiac evaluation. Continued use of muscle relaxants (baclofen) and addition of Tylenol for analgesia presently. Anticipate resumption of ibuprofen & voltaren if cardiac evaluation unremarkable, possibly with addition of PPI. Discussed avoidance of excessive physical exertion given current symptomatology. Has been referred to Dr Shah with appointment on 02/24/24 already scheduled. Plan Observation Lovenox for DVT prophylaxis Will need referral for primary care follow up in addition to seeing Dr Shah for sciatica Plans discussed with latashatent and family present and she was given an opportunity to ask questions FULL code Attestations Medical Necessity Statement*: Currently anticipate a stay less than two midnights in this patient with chest pain and risk factors for cardiac disease including untreated hypertensin, \family history CAD in father who had bypass surgery at same age she is now, remote cardiac issues, and non-specific findings on work up to date including EKG changes, non-normal troponin baseline, slight elevation in BNP, relief of symptoms with nitro and the like. Plan for overnight monitoring and cardiac evaluation as described. Diagnoses Chest pain R07.9 Chest pain type: unspecified Elevated blood pressure reading without diagnosis of hypertension R03.0 Right lumbar radiculopathy M54.16
--- NOTE | 2024-02-10 15:49 | ECG_ITS ---
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 Measurements Intervals [place] Rate: 91 P: 38 ND: 174 QRS: -40 QRSD: 72 T: -3 QT: 331 QTc: 408 Interpretive Statements SINUS RHYTHM LEFT AXIS DEVIATION [QRS AXIS < -30] PATTERN CONSISTENT WITH PULMONARY DISEASE NONSPECIFIC T-WAVE ABNORMALITY Compared to ECG 02/10/2024 11:45:51 Sinus bradycardia no longer present Possible ischemia no longer present T-wave abnormality still present Electronically Signed On 02-11-2024 18:06:04 [employer]ORS SCIENTIST by Hever Pandya M.D. [email or web address]
[2024-02-10] MEDS: enoxaparin 40 mg/0.4 mL Syringe SUBCUT (16:09)
[2024-02-10] MEDS: baclofen 10 mg Tablet 5 MG PO ×2 (16:09→20:43)
[2024-02-11] VITALS (7 sets, daily range): BP systolic 106–162; BP diastolic 58–99; PULSE 55–84; RESP 16–18; TEMP 36.4–36.7; O2SAT 92–95
[2024-02-11] MEDS: acetaminophen 325 mg Tablet 650 MG PO ×2 (00:19→08:18)
[2024-02-11 06:15] LABS: Chol HDL Ratio 4.24 mg/dL (0.0-4.40); Cholesterol 174 mg/dL (0-200); HDL Cholesterol 41 mg/dL (60-100); LDL Cholesterol Calculated 98 mg/dL (50-129); LDL HDL Ratio 2.39 RATIO (0.00-3.22); NT Pro B Type Natriuretic Pept 149 pg/mL (0-125); Triglycerides 177 mg/dL (0-150)
[2024-02-11] MEDS: regadenoson 0.4 Mg/5 ml Syringe IVP (07:13)
[2024-02-11] MEDS: ondansetron 2 mg/ML SDV 2 mL 4 MG IVP (07:21)
[2024-02-11] MEDS: baclofen 10 mg Tablet 5 MG PO (08:18)
[2024-02-11] MEDS: pantoprazole DR 40 mg Tablet PO (08:18)
--- NOTE | 2024-02-11 09:55 | PC.CHAP ---
Pastoral Care Encounter/Spiritual Assessment Type of Contact [] Declined administration internship visit [] Patient/Family/Request visit [] Outpatient visit [] Follow-up visit [] Physician referral [] Code/Alert [x] Routine visit [] Staff referral [] Actively dying [] Patient sleeping [x] Family support [] [] Out of room [] Palliative care [] [] Receiving care in room [] Pre-surgical visit [] Trauma [] Long length of stay [] ICU visit [] Other: Relational/Emotional Strength [x] Patient feels connected with others/family/visitors/staff [] Distress [] Loneliness/isolation [] Abandonment Spirituality of Patient [x] Person of Eda [] Attends Temple of their Eda [x] Believes in Prayer [] Reads Bible or Quaker materials [] There are Spiritual issues to be addressed 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 Interventions [x] Prayer [x] Active listening [] Non-anxious presence [x] Spiritual/emotional support [] Crisis/trauma care [] Spiritual counseling [] Bereavement support [] Provided bereavement packet [] Provided Bible/devotional materials [] Provided toy/stuffed animal, coloring book to patient or family member [] Provided Communion [] Anointing/Antlers [] Salvation [x] Completed spiritual assessment [] Other: Impact on Illness or Injury [] Angry [] Fearful [] Anxious [] Often cries [] Exhaustion [] Unable to work [] Unable to attend christianity [] Unable to walk/stand [] Unable to read [] Unable to drive [] Unable to eat/drink [] Unable to sleep [] Unable to be with family [] Patient intubated [] Other: Summary Time spent with patient 5 min
--- NOTE | 2024-02-11 11:47 | P.DS_ITS ---
Discharge Providers Date of Admission: 02/10/24 15:44 Date of Discharge: February 11, 2024 Attending Provider at Admission: Pattie Pineda MD Attending Provider at Discharge: Guillermo Vee Primary Care Provider: Chris Brady DO Diagnoses at Discharge Discharge Diagnosis (1) Chest pain: Status: Acute Qualifiers: Chest pain type: unspecified Qualified Code(s): R07.9 - Chest pain, unspecified (2) Elevated blood pressure reading without diagnosis of hypertension: Status: Acute (3) Right lumbar radiculopathy: Status: Acute Reason for Visit Reason for Visit: chest pain Brief History: Saskia Arguello is a 63 year old female who presented with chest pain that began while walking in [facility] to the pharmacy. She had been told a prescription was going to cost $200. She chose not to fill the script and a short time later the pain began. It was located on the left side of the chest, substernal areas, radiating to the shoulder blades and across the chest. Band like feeling. Severe. She has had similar pain about once a month but usually not this bad. She attempted self-treatment with an [id number] acid reflux medication, which was ineffective. EMS was called and ultimately administered three doses of nitroglycerin en route to the hospital, providing relief of chest pain. She denies shortness of breath, nausea, or excessive sweating at the time of chest pain, but does not recall many details because she was so upset over the chest pain and subsequent focus on her. She experienced headache with nitro, but on arrival here, chest pain had resolved. The patient has a history of a heart attack at age 30, described by Dr Pandya as a short in her heart, but stress testing and angiogram at the time were negative. She has no known chronic cardiac conditions, no hypertension, no hyperlipidemia, no diabetes, no kidney disease. She does not routinely seek medical care however. There has been minimal medical intervention or examinations related to her cardiac history since the event 30 years ago. She denied regular physician follow-up or monitoring of her heart health. Her primary medical concern aside from the current episode is chronic low back pain/sciatica, for which she has been using NSAIDs and recently completed a five-day course of prednisone. She has a family history of CAD with her father having quadrupel bypass age 63. Remote smoking history for a short time frame, no drugs or alcohol. She is being admitted for further evaluation. Hospital Course Hospital Course She was monitored on telemetry, underwent additional assessment with echocardiogram which showed normal ejection fraction, grade 1 diastolic dysfunction, normal cardiac chambers. Slightly dyskinetic basal inferolateral segment. Moderate LVH. While monitored in the hospital noted with episodic hypertension, blood pressure sometimes rising as high as 170/103, but other times blood pressure soft, down as low as 106/58. She remains free of chest pain. She was assessed by stress test which showed small sized area of prior infarct seen in LCx territory. LV systolic function found to be normal. 3 times daily ratio elevated. Discussed findings with her. She does report prior ME as per HPI. Discussed with her starting aspirin, atorvastatin. Heart rates occasionally dipping down to 50s or as low as 49, would avoid beta-shannan. Discussed continued management and optimization of cardiovascular factors. Discussed focus on episodic hypertension monitoring and management, she will continue checking her blood pressures at home. She is started on as needed amlodipine depending on blood pressure, holding will resume if her blood pressure soft to avoid hypotension. She is also encouraged to discontinue high-dose/long-term NSAIDs including ibuprofen due to risk of this medication increasing her blood pressure, as well as increasing risk of ME and CVA. She understands there is some systemic absorption with Voltaren which is also an NSAID. She is asked to follow-up with cardiology. Nitroglycerin as provided also in case of recurrence of anginal symptoms. She knows to seek medical attention in case of worsening/persistent or new concerning symptoms which may suggest plaque rupture and an acute ME. Physical Exam Const: COMMON NORMALS: patient oriented x3 and alert GENERAL APPEARANCE: cooperative ORIENTATION/CONSCIOUSNESS: Yes awake HENMT: COMMON NORMALS: oropharynx normal Neck/C-Spine: COMMON NORMALS: no JVD Resp: COMMON NORMALS: normal respiratory effort and clear to auscultation bilaterally AUSCULTATION: clear to auscultation bilaterally Cardio: COMMON NORMALS: no JVD, regular rhythm, S1 normal heart sound present, S2 normal heart sound present and No murmurs present (Cardio) RHYTHM: regular rhythm HEART SOUNDS: S1 normal heart sound present and S2 normal heart sound present GI: COMMON NORMALS: Normal to inspection, nondistended, normoactive bowel sounds present, Soft to palpation and non-tender PALPATION: Yes Soft to palpation Extremity: COMMON NORMALS: no joint enlargement and no pedal edema Neuro: COMMON NORMALS: patient oriented x3 and moves all extremities S ENSORIUM/ORIENTATION: Yes alert Skin: COMMON NORMALS: no rashes or lesions noted GENERAL SKIN EXAM: no rash es or lesions noted Discharge Data Studies Completed and Pending Completed Studies During Hospitalization Category Date Time Status Cardiac Stress Test MIBI [Sestamibi Stress Test Request Exams 02/10/24 15:12 Draft ] Stat XR chest 1V portable [id number] Urgent Exams 02/10/24 09:49 Completed NM christos perf SPECT r/s* [id number] Routine Nuc Med 02/11/24 15:12 Completed CV. echo complete* [id number] Stat Ultrasound 02/10/24 15:12 Completed Radiology Impressions Chest X-Ray 02/10/24 09:49 IMPRESSION: 1. Mild cardiac enlargement. No acute process. Laboratory Results WBC 8.89 10^3/uL (3.29-11.43) 02/10/24 10:08 RBC 4.94 10^6/uL (3.85-5.65) 02/10/24 10:08 Hgb 16.50 g/dL (11.27-16.99) 02/10/24 10:08 Hct 48.1 % (36-47) H 02/10/24 10:08 MCV 97.4 fl (85-98) 02/10/24 10:08 MCH 33.4 pg (27-33) H 02/10/24 10:08 MCHC 34.3 g/dL (30-55) 02/10/24 10:08 RDW 13.0 % (12.1-15.1) 02/10/24 10:08 Plt Count 315 10^3/cmm (157-399) 02/10/24 10:08 MPV 11.1 fL (7.4-10.4) H 02/10/24 10:08 Neut % (Auto) 41.9 % 02/10/24 10:08 Lymph % (Auto) 49.8 % 02/10/24 10:08 [place] % (Auto) 5.6 % 02/10/24 10:08 Eos % (Auto) 1.6 % 02/10/24 10:08 Baso % (Auto) 0.3 % 02/10/24 10:08 Neut # (Auto) 3.72 10^3/uL (1.8-7.7) 02/10/24 10:08 Lymph # (Auto) 4.4 10^3/uL (0.8-4.8) 02/10/24 10:08 [place] # (Auto) 0.5 10^3/uL (0.2-0.9) 02/10/24 10:08 Eos # (Auto) 0.1 10^3/uL (0.0-0.8) 02/10/24 10:08 Baso # (Auto) 0.0 10^3/uL (0.0-0.1) 02/10/24 10:08 Nucleated RBC % (auto) 0 % 02/10/24 10:08 Nucleated RBCs # 0.0 /100WBC 02/10/24 10:08 Sodium 140 mmol/L (136-145) 02/10/24 10:08 Potassium 3.8 mmol/L (3.5-5.1) 02/10/24 10:08 Chloride 103 mmol/L (98-107) 02/10/24 10:08 Carbon Dioxide 23 mmol/L (22-29) 02/10/24 10:08 Anion Gap 17.8 (5-19) 02/10/24 10:08 BUN 15 mg/dL (8-23) 02/10/24 10:08 Creatinine 0.7 mg/dL (0.5-0.9) 02/10/24 10:08 GFR Calculation 84.5 mL/min (90-130) L 02/10/24 10:08 Glucose 91 mg/dL (65-115) 02/10/24 10:08 Calculated Osmolality 290 mOsm/kg (285-295) 02/10/24 10:08 Calcium 9.6 mg/dL (8.5-10.5) 02/10/24 10:08 Total Bilirubin 0.5 mg/dL (0.15-1.2) 02/10/24 10:08 AST 14 U/L (0-32) 02/10/24 10:08 ALT 16 U/L (0-33) 02/10/24 10:08 Alkaline Phosphatase 90 U/L (35-105) 02/10/24 10:08 Troponin T Baseline 19 ng/L (0-10) H 02/10/24 10:08 Troponin T 120 Minute 16.58 ng/L (0-10) H 02/10/24 12:10 Delta Troponin T -2.42 ABS# (0-10) L 02/10/24 12:10 Troponin T Hi Sens 6Hr 16.60 ng/L (0-10) H 02/10/24 17:12 Troponin T Hi Sens 6Hr Delta -2.40 ng/L (0-12) L 02/10/24 17:12 NT-Pro-B Natriuret Pep 149 pg/mL (0-125) H 02/11/24 05:37 Total Protein 7.7 g/dL (6.6-8.7) 02/10/24 10:08 Albumin 4.7 g/dL (3.5-5.2) 02/10/24 10:08 Globulin 3.0 g/dL (1.3-4.6) 02/10/24 10:08 Triglycerides 177 mg/dL (0-150) H 02/11/24 05:37 Cholesterol 174 mg/dL (0-200) 02/11/24 05:37 LDL Cholesterol, Calc 98 mg/dL (50-129) 02/11/24 05:37 HDL Cholesterol 41 mg/dL (60-100) L 02/11/24 05:37 LDL/HDL Ratio 2.39 RATIO (0.00-3.22) 02/11/24 05:37 Cholesterol/HDL Ratio 4.24 mg/dL (0.0-4.40) 02/11/24 05:37 Vitals Last Vital Signs Temp 98.0 F 02/11/24 11:34 Pulse 55 L 02/11/24 11:34 Resp 17 02/11/24 11:34 BP 106/58 02/11/24 11:34 Pulse Ox 92 02/11/24 11:34 O2 Del Method Room Air 02/11/24 11:34 Discharge Plan Discharge Patient Disposition: Home Condition: Stable Prescriptions: New pantoprazole 40 mg Tablet,Delayed Release (Dr/Ec) 40 mg PO DAILY Qty: 30 0RF acetaminophen 325 mg Tablet 650 mg PO Q6H PRN (Reason: Mild/Mod Pain Or Temp >/= 101) Qty: 90 0RF atorvastatin 40 mg tablet 40 mg PO QPM Qty: 90 0RF nitroglycerin 0.4 mg Tablet, Sublingual 0.4 mg sublingual Q5M PRN (Reason: Chest Pain) Qty: 25 0RF aspirin [Adult Aspirin Regimen] 81 mg tablet,delayed release (DR/EC) 81 mg PO DAILY Qty: 90 0RF amlodipine 5 mg tablet 5 mg PO DAILY PRN (Reason: hypertension) Qty: 90 0RF Rx Instructions: BP > 130 systolic or 90 diastolic Continued diclofenac sodium [Voltaren] 1 % Gel 2 g TOPICAL QID Rx Instructions: apply to single elbow, wrist or hand; for hand includes palm/fingers/back of hand baclofen 5 mg tablet 5 mg PO TID PRN (Reason: muscle spasms) Discontinued ibuprofen 200 mg capsule 200 mg PO Q6H PRN (Reason: Pain) Discharge Orders: Discharge Order (Routine); Ordered 02/11/24 Ordered By: Guillermo Vee Referrals: CARDIOLOGY [Provider Group] - 1 week (We have notified your physician's clinic of the need for a follow-up appointment to be scheduled. If you have not heard from them within the next 2 business days, please call them directly. ) Chris Brady, DO [Primary Care Provider] - (We have notified your physician's clinic of the need for a follow-up appointment to be scheduled. If you have not heard from them within the next 2 business days, please call them directly. ) Discharge Diet: Cardiac Discharge Activity: Increase activity as tolerated and Limit activity as instructed Patient Instructions: Nitroglycerin (By mouth), Aspirin (By mouth), Atorvastatin (By mouth), Hypertension (GEN), Coronary Artery Disease in Women (GEN), Prevent Cardiovascular Disease (ED), Opioid Safety Activity Restrictions/Additional Instructions: Please stop ibuprofen and start taking aspirin, atorvastatin to help with long- term management of cardiovascular risk factors with underlying coronary disease, prior heart attack. Please focus on management of blood pressure, monitor blood pressure 3 times daily. Take amlodipine (blood pressure medication) if your blood pressure is higher than 130 systolic (top number) or 90 diastolic (low number). Your blood pressure as discussed does fluctuate, so be careful not to take blood pressure medication if your blood pressure is on the low side. Watch and limit your salt intake which may contribute to elevated blood pressure, and avoid NSAIDs (like ibuprofen) if possible which may contribute to high blood pressure as well as increased risk of heart attack and stroke. In addition to acetaminophen consider hot/cool pack, menthol or capsaicin, and other topical agents that may provide relief. You are started on pantoprazole to reduce chance of gastritis or other stomach symptoms. Please let your primary provider know in case of persistent dyspepsia symptoms to have be referred for additional evaluation by endoscopy. Stand Alone Forms: Work/School Release Discharge Attestations Time Spent in Discharge Care*: greater than 30 min Quality Metrics Clinical Quality Measures [ No reported AMI, CVA or VTE this stay] Coding Level of Care Code 26264 Total time (in minutes) for Discharge: 45 Diagnoses Chest pain R07.9 Chest pain type: unspecified Elevated blood pressure reading without diagnosis of hypertension R03.0 Right lumbar radiculopathy M54.16
--- NOTE | 2024-02-11 12:19 | PC.NURSE ---
patient informed nurse that she wanted to establish with Dr Love due to Dr Brady moving to [facility]. called Dr Love office to set up for a new patient appointment the first available appointment is March 16@0900. scheduled for that appointment.
--- NOTE | 2024-02-11 15:12 | NMCV_ITS ---
NM christos perf SPECT r/s* [id number] Saskia Arguello Age: 63 Gender: F : 1960 Exam Date: 02/11/2024 15:12 Ordering Phys: Pattie Pineda MD Technologist: QUENTIN Singleton Exam Location: [facility] Indications: CP STRESS TEST Please see separate stress test report in [facility] for full findings IMAGE PROTOCOL Rest/Stress 1 Lexiscan Day Radiopharmaceutical Dose (mCi) Administration Site Administered by Rest: Tc-99m 10.9 IV QUENTIN Singleton Sestamibi Stress:Tc-99m 32.9 IV QUENTIN Singleton Sestamibi Rest: 11-Feb-2024 60 Discovery 630 Stress: 11-Feb-2024 30 Discovery 630 0.4mg Lexiscan. Supine position only as patient was unable to lay prone. SPECT RESULTS Technical Quality: Good Raw Data Analysis: Normal Image Corrections: No attenuation or motion correction applied Summed Stress Score: 1 Summed Rest Score: 4 Summed Difference Score: 0 PERFUSION FINDINGS There is small area of fixed perfusion defect seen in the inferolateral wall. This is consistent with small area of prior infarct with no significant elena- infarct ischemia FUNCTIONAL RESULTS (calculated via Gated SPECT) Stress Image LV EF (%): 75 Stress EDV (mL):71 TID: 1.35 Stress ESV (mL):18 FUNCTIONAL FINDINGS: LV systolic function is normal. TID ratio is elevated. IMPRESSIONS 1. Small sized area of prior infarct seen in left circumflex artery territory. 2. LV systolic function is normal. 3. TID ratio is elevated. Lokesh Gracia MD (Electronically Signed) Final Date: 11 February 2024 09:22 S
== END 2024-02-11 12:46 | disposition home or self-care (01) ==
LOC: ER 13:20 → MEDSURG 15:45
PROVIDERS: Admitting Provider Hospitalist; Emergency Provider Physician Assistant; PCP Family Medicine; Visit Provider Internal Medicine
DX: R07.9 Chest pain, unspecified (principal); R03.0 Elevated blood-pressure reading, without diagnosis of hypertension; M54.16 Radiculopathy, lumbar region; Z82.49 Family history of ischemic heart disease and other diseases of the circulatory system; Z87.891 Personal history of nicotine dependence
CPT/HCPCS: 36415; 71045; 78452; 80053; 80061; 83880; 84484; 85025; 93005; 93017; 93306; 96372; 96374; 96375; 99285; A9500; G0378; J1650; J2405; J2785

== ENCOUNTER → 2024-02-24 13:16 | Outpatient (BNVA) | payer OTHER, SELFPAY | PROVIDERS: PCP Family Medicine; Visit Provider Orthopaedic Surgery | DX: M54.41 Lumbago with sciatica, right side (principal); G89.29 Other chronic pain | CPT/HCPCS: 72110 ==

== ENCOUNTER 2024-04-13 07:37 | Outpatient (CLI) | payer OTHER, SELFPAY ==
--- NOTE | 2024-04-13 07:38 | US_ITS ---
WS: [id number] DIAGNOSTIC BILATERAL DIGITAL BREAST TOMOSYNTHESIS MAMMOGRAPHY WITH CAD LEFT breast ultrasound, limited HISTORY: L breast mass COMPARISON: None available. TECHNIQUE: Bilateral craniocaudad, mediolateral oblique, and mediolateral views are submitted with to mosynthesis and SM. Spot compression LEFT MLO and CC. Computer aided detection utilized. Breast composition: The breasts are almost entirely fatty. Triangular marker is placed along the inferior posterior LEFT breast near 6:00. This is near the infr amammary fold. There is no mass or distortion. No suspicious calcifications within either breast. LEFT breast ultrasound, limited. Ultrasound directed to the palpable area in the LEFT breast which is near 7:00. No mass or soft tissu e thickening or shadowing is identified. US/US breast LT limited* [id number] IMPRESSION: BI-RADS: 2 - Benign. FOLLOW UP: 1 Year Follow-up
--- NOTE | 2024-04-13 08:30 | MM_ITS ---
WS: [id number] DIAGNOSTIC BILATERAL DIGITAL BREAST TOMOSYNTHESIS MAMMOGRAPHY WITH CAD LEFT breast ultrasound, limited HISTORY: L breast mass COMPARISON: None available. TECHNIQUE: Bilateral craniocaudad, mediolateral oblique, and mediolateral views are submitted with to mosynthesis and SM. Spot compression LEFT MLO and CC. Computer aided detection utilized. Breast composition: The breasts are almost entirely fatty. Triangular marker is placed along the inferior posterior LEFT breast near 6:00. This is near the infr amammary fold. There is no mass or distortion. No suspicious calcifications within either breast. LEFT breast ultrasound, limited. Ultrasound directed to the palpable area in the LEFT breast which is near 7:00. No mass or soft tissu e thickening or shadowing is identified. MM/MM diag BI tomosynthesis [id number] IMPRESSION: BI-RADS: 2 - Benign. FOLLOW UP: 1 Year Follow-up
== END 2024-04-13 07:38 | disposition home or self-care (01) ==
LOC: RAD 07:37
PROVIDERS: PCP Family Medicine; Visit Provider Family Medicine
DX: N64.4 Mastodynia (principal); N63.24 Unspecified lump in the left breast, lower inner quadrant; R92.313 Mammographic fatty tissue density, bilateral breasts
CPT/HCPCS: 76642; 77062; G0279

== ENCOUNTER → 2024-08-04 12:24 | Outpatient (BNVA) | payer OTHER, SELFPAY | PROVIDERS: PCP Family Medicine; Visit Provider Emergency Medicine | DX: S69.92XA Unspecified injury of left wrist, hand and finger(s), initial encounter (principal); X58.XXXA Exposure to other specified factors, initial encounter | CPT/HCPCS: 73130 ==

== ENCOUNTER → 2024-10-06 15:30 | Outpatient (BNVA) | payer SELFPAY | PROVIDERS: Absent Provider Podiatrist Foot & Ankle Surgery; PCP Family Medicine; Visit Provider Podiatrist Foot & Ankle Surgery | DX: M79.671 Pain in right foot (principal); M72.2 Plantar fascial fibromatosis; M19.071 Primary osteoarthritis, right ankle and foot; M21.611 Bunion of right foot | CPT/HCPCS: 73630 ==

== ENCOUNTER 2024-10-16 11:58 | Emergency (ER) | payer SELFPAY ==
--- NOTE | 2024-10-16 11:58 | XRR_ITS ---
PROCEDURE INFORMATION: Exam: XR Chest Exam date and time: 10/16/2024 12:58 PM Age: 63 years old Clinical indication: Pain; Chest pressure; Additional info: Cp TECHNIQUE: Imaging protocol: Radiologic exam of the chest. Views: 1 view. COMPARISON: CR XR chest 1V portable [id number] 02/10/2024 10:07 AM FINDINGS: Lungs: Unremarkable. No consolidation. Pleural spaces: Unremarkable. No pleural effusion. No pneumothorax. Heart/Mediastinum: Unremarkable. No cardiomegaly. Bones/joints: Unremarkable. XR/XR chest 1V portable [id number] IMPRESSION: No acute findings.
[2024-10-16 12:00] VITALS: BP 109/79; PULSE 100; RESP 18; TEMP 36.7; O2SAT 92; BMI 34.5
--- OUTSIDE RECORDS SUMMARY | 2024-10-16 12:01 | XMS_ITS | Encounter Summary ---
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 Role Phone Unavailable Primary Care Provider Unavailabl e Encounter Details Date Type Department Care Team (Latest Contact Info) Description 12/23/2003 Outpatient Historical [facility] Oral [facility]- [address] [place] [id number] Trung Shabazz, DDS NO ADDRESS ON FILE TOOTH POSITION ANOMALY (Primary Dx); UNSPEC DENTAL CARIES Social History Tobacco Use Types Packs/Day Years Used Date Smoking Tobacco: Never Assessed Comments Unknown Sex and Gender Information Value Date Recorded Sex Assigned at Not on file 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
--- OUTSIDE RECORDS SUMMARY | 2024-10-16 12:01 | XMS_ITS | Clinical Summary ---
Author Organization [facility] Address [address] 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
--- NOTE | 2024-10-16 12:03 | ECG_ITS ---
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 Measurements Intervals Prince Rate: 94 P: 50 AR: 174 QRS: -25 QRSD: 77 T: 19 QT: 335 QTc: 420 Interpretive Statements SINUS RHYTHM BORDERLINE LEFT AXIS DEVIATION [QRS AXIS < -20] Compared to ECG 02/10/2024 17:28:27 T-wave abnormality no longer present Electronically Signed On 10-16-2024 14:16:29 CDT by Xiomara [id number]
[2024-10-16 12:49] LABS: Hematocrit 40.9 % (36-47); Hemoglobin 13.50 g/dL (11.27-16.99); Mean Corpuscular HGB Conc 33.0 g/dL (30-55); Mean Corpuscular Hemoglobin 32.5 pg (27-33); Mean Corpuscular Volume 98.6 fl (85-98); Nucleated Red Blood Cells % 0 %; Platelet Count 236 10^3/cmm (157-399); Red Blood Count 4.15 10^6/uL (3.85-5.65); White Blood Count 5.17 10^3/uL (3.29-11.43)
[2024-10-16 12:55] VITALS: BP 101/82; PULSE 75; RESP 22; O2SAT 93
--- NOTE | 2024-10-16 12:56 | ED_ITS ---
HPI - Chest Pain 2 General: Chief Complaint: Chest Pain Stated Complaint: chest pain Time Seen by Provider: 10/16/24 12:34 History of Present Illness: 60-year-old female presents emergency ro om with complaint of chest pain. This began 2 days ago she took a neck show evening had some relief with her chest pain. Began again today she took another nitro with relief today. She is not currently having chest pain. Patient states she has had heart attacks before. She states she had a heart attack in January of last year however never reviewed the chart on that there is no elevation in troponin they did a stress test that showed an old area of decreased uptake in the left circumflex artery but there was no evidence of reversible ischemia. She tells me she had 1 in her 30s as well -however according to documentation angiogram done at that time was normal. Associated symptoms: Deny abdominal pain, dyspnea or fever(s) Related Data Home Medications ?Medication ?Instructions ?Recorded ?Confirmed fluticasone propionate 50 1 spray intranasal BID PRN 0 10/16/24 10/16/24 mcg/actuation nasal allergies spray,suspension (Flonase Allergy Relief) Previous Rx's ?Medication ?Instructions ?Recorded acetaminophen 325 mg tablet 650 mg (2 x 325 mg) PO Q6H PRN 02/11/24 Mild/Mod Pain Or Temp >/= 101 #90 tabs aspirin 81 mg tablet,delayed 81 mg PO DAILY #90 tabs 1 04/12/23 release (Adult Aspirin Regimen) nitroglycerin 0.4 mg sublingual 0.4 mg sublingual Q5M PRN Chest 02/11/24 tablet Pain #25 tabs omeprazole 20 mg tablet,delayed 20 mg PO DAILY PRN hea rtburn #60 03/16/24 release tabs amlodipine 10 mg tablet 10 mg PO DAILY PRN hypertens ion 04/16/24 #90 tabs atorvastatin 40 mg tablet 40 mg PO QPM #90 tabs albuterol sulfate 90 mcg/actuation 2 puff inhalation Q 6H PRN 09/04/24 aerosol inhaler shortness of breath or wheez ing #8.5 grams xxscbsfbxhbpqco-nsprlnqewifvlwp-KI 5 ml PO Q6H PRN col d symptoms #118 09/04/24 2 mg-30 mg-10 mg/5 mL oral syrup mL (Bromfed DM) levocetirizine 5 mg tablet 5 mg PO DAILY PRN allergy s ymptoms 09/09/24 #30 tabs isosorbide mononitrate 30 mg 30 mg PO DAILY #30 tabs 0 10/16/24 tablet,extended release 24 hr Allergies Allergy/AdvReac Type Severity Reaction Status Date / Time No Known Allergies Allergy Verified 10/06/24 15:40 Review of Systems 2 Const: Denies: fever(s) or chills Card: Denies: chest pain Resp: Denies: dyspnea GI: Denies: abdominal pain : Denies: dysuria, urinary frequency or urinary urgency Musc: Denies: neck pain or back pain Skin/Breast: Denies: rash PFSH ED 2 PFSH: Medical History Essential hypertension Obesity (BMI 35.0-39.9 without comorbidity) Old IL (myocardial infarction) Arteriosclerotic heart disease (ASHD) Dyslipidemia Lumbar stenosis with neurogenic claudication Chronic low back pain with sciatica Surgical History Hx of repair of right rotator cuff x2 Hx of repair of left rotator cuff x1 H/O laparoscopy with large ovarian cyst/benign tumor removal History of hysterectomy Family History Father CAD (coronary artery disease) quadruple bypass age 63 Social History Smoking and tobacco/nicotine status: never used tobacco/nicotine Alcohol intake: never Substance/Drug Use: never Lives independently: Yes Physical Exam 2 Const: GENERAL APPEARANCE: cooperative ORIENTATION/CONSCIOUSNESS: Yes awake, Yes oriented to person, Yes oriented to place and Yes oriented to time HENMT: COMMON NORMALS: normocephalic, atraumatic and hearing grossly normal bilaterally HEAD & SCALP: normocephalic and atraumatic Resp: COMMON NORMALS: normal respiratory effort, No retractions, No use of accessory muscles and clear to auscultation bilaterally AUSCULTATION: clear to auscultation bilaterally Cardio: COMMON NORMALS: regular rate, regular rhythm and No murmurs present (Cardio) RATE: regular rate RHYTHM: regular rhythm GI: COMMON NORMALS: Soft to palpation and No hepatosplenomegaly present A USCULTATION: Yes normoactive bowel sounds PALPATION: Yes Soft to palpation, No Tenderness to palpation present (GI), No Guarding due to palpation present (GI) and Yes No hepatosplenomegaly present Extremity: COMMON NORMALS: normal to inspection, capillary refill normal, no clubbing, cyanosis or edema, no calf tenderness and no pedal edema Neuro: SENSORIUM/ORIENTATION: Yes oriented to person, Yes oriented to place and Yes oriented to time Skin: COMMON NORMALS: no rashes or lesions noted GENERAL SKIN EXAM: no rashes or lesions noted Course 2 Vital Signs: Vital signs: Vital Signs Temperature 98.1 F 10/16/24 12:00 Pulse Rate 63 10/16/24 15:23 Respiratory Rate 18 10/16/24 15:23 Blood Pressure 129/80 10/16/24 15:23 Pulse Oximetry 97 10/16/24 15:23 Oxygen Delivery Me thod Room Air 10/16/24 12:00 MDM - Chest Pain Medical Decision Making Cardiac enzymes negative. Reviewing her old chart hospitalization in January 2024 she did not have an IL. She also mention that discharge summary that she had previously had an angiogram at the episode she referred to is having previously had an IL sometime in her 30s and angiogram at that time was negative for any cardiovascular disease. Reviewed this with the patient. Cardiac enzymes and EKG negative at this time no sign of acute coronary syndrome. Started on isosorbide mononitrate 30 mg once daily. Previous stress test done within the last year shows no areas reversibility there is a area of decreased uptake reflective of scar scarring possibly from previous IL but there was no reversible ischemia sided. Recommend she follow-up with cardiology within the next week. Medical Records I reviewed the patient's medical records. Lab Data I reviewed the patient's lab results. 10/16/24 12:30 10/16/24 12:30 Radiology Impressions Chest X-Ray 10/16/24 11:58 IMPRESSION: No acute findings. Laboratory Results WBC 5.17 10^3/uL (3.29-11.43) 10/16/24 12:30 RBC 4.15 10^6/uL (3.85-5.65) 10/16/24 12:30 Hgb 13.50 g/dL (11.27-16.99) 10/16/24 12:30 Hct 40.9 % (36-47) 10/16/24 12:30 MCV 98.6 fl (85-98) H 10/16/24 12:30 MCH 32.5 pg (27-33) 10/16/24 12:30 MCHC 33.0 g/dL (30-55) 10/16/24 12:30 RDW 13.2 % (12.1-15.1) 10/16/24 12:30 Plt Count 236 10^3/cmm (157-399) 10/16/24 12:30 MPV 10.8 fL (7.4-10.4) H 10/16/24 12:30 Neut % (Auto) 48.5 % 10/16/24 12:30 Lymph % (Auto) 42.2 % 10/16/24 12:30 Swift % (Auto) 6.8 % 10/16/24 12:30 Eos % (Auto) 1.7 % 10/16/24 12: Baso % (Auto) 0.6 % 10/16/24 12:30 Neut # (Auto) 2.51 10^3/uL (1.8-7.7) 10/16/24 12:30 Lymph # (Auto) 2.2 10^3/uL (0.8-4.8) 10/16/24 12:30 Swift # (Auto) 0.4 10^3/uL (0.2-0.9) 10/16/24 12:30 Eos # (Auto) 0.1 10^3/uL (0.0-0.8) 10/16/24 12:30 Baso # (Auto) 0.0 10^3/uL (0.0-0.1) 10/16/24 12:30 Nucleated RBC % (auto) 0 % 10/16/24 12: Nucleated RBCs # 0.0 /100WBC 10/16/24 12:30 Sodium 137 mmol/L (136-145) 10/16/24 12:30 Potassium 4.1 mmol/L (3.5-5.1) 10/16/24 12:30 Chloride 104 mmol/L (98-107) 10/16/24 12:30 Carbon Dioxide 17 mmol/L (22-29) L 10/16/24 12:30 Anion Gap 20.1 (5-19) H 10/16/24 12:30 BUN 17 mg/dL (8-23) 10/16/24 12:30 Creatinine 0.9 mg/dL (0.5-0.9) 10/16/24 12:30 GFR Calculation 63.2 mL/min (90-130) L 10/16/24 12:30 Glucose 93 mg/dL (65-115) 10/16/24 12:30 Calculated Osmolality 285 mOsm/kg (285-295) 10/16/24 12:30 Calcium 9.0 mg/dL (8.5-10.5) 10/16/24 12:30 Total Bilirubin 0.3 mg/dL (0.15-1.2) 10/16/24 12:30 AST 20 U/L (0-32) 10/16/24 12:30 ALT 18 U/L (0-33) 10/16/24 12:30 Alkaline Phosphatase 110 U/L (35-105) H 10/16/24 12:30 Troponin T Baseline 27 ng/L (0-10) H 10/16/24 12:30 Troponin T 120 Minute 25.66 ng/L (0-10) H 10/16/24 14:19 Delta Troponin T -1.34 ABS# (0-10) L 10/16/24 14:19 Total Protein 6.3 g/dL (6.6-8.7) L 10/16/24 12:30 Albumin 4.1 g/dL (3.5-5.2) 10/16/24 12:30 Globulin 2.2 g/dL (1.3-4.6) 10/16/24 12:30 Lipase 20 U/L (13-60) 10/16/24 12:30 All radiology interpretation(s) finalized by discharge Discharge Plan Discharge Patient Disposition: Home Clinical Impression: Atypical chest pain Condition: Stable Prescriptions: New isosorbide mononitrate 30 mg tablet extended release 24 hr 30 mg PO DAILY Qty: 30 0RF No Action omeprazole 20 mg tablet,delayed release (DR/EC) 20 mg PO DAILY PRN (Reason: heartburn) Qty: 60 0RF amlodipine 10 mg tablet 10 mg PO DAILY PRN (Reason: hypertension) Qty: 90 1RF albuterol sulfate 90 mcg/actuation HFA aerosol inhaler 2 puff inhalation Q6H PRN (Reason: shortness of breath or wheezing) Qty: 8.5 0RF lnrbjshzfgtzmau-qbqozvehw-WO [Bromfed DM] 2-30-10 mg/5 mL syrup 5 ml PO Q6H PRN (Reason: cold symptoms) Qty: 118 0RF levocetirizine 5 mg tablet 5 mg PO DAILY PRN (Reason: allergy symptoms) Qty: 30 0RF atorvastatin 40 mg tablet 40 mg PO QPM Qty: 90 0RF acetaminophen 325 mg Tablet 650 mg PO Q6H PRN (Reason: Mild/Mod Pain Or Temp >/= 101) Qty: 90 0RF nitroglycerin 0.4 mg Tablet, Sublingual 0.4 mg sublingual Q5M PRN (Reason: Chest Pain) Qty: 25 0RF aspirin [Adult Aspirin Regimen] 81 mg tablet,delayed release (DR/EC) 81 mg PO DAILY Qty: 90 0RF fluticasone propionate [Flonase Allergy Relief] 50 mcg/actuation spray,suspension 1 spray intranasal BID PRN (Reason: allergies) Rx Instructions: administer into each nostril Discharge Orders: Discharge ED (Routine); Ordered 10/16/24 Ordered By: Marek Gomez Referrals: Jose Love MD [Primary Care Provider, [facility]] Discharge Diet: Usual diet Discharge Activity: Increase activity as tolerated Patient Instructions: Opioid Safety, Pain Management, Patient Portal & [place] Instructions Activity Restrictions/Additional Instructions: Thank you for choosing [facility] for your healthcare needs today. It is very important that you follow up as instructed or that you return to the Emergency Department should you have concerns or if your condition changes or worsens in any way. You were seen in the emergency room with complaint of chest comfort. Your cardiac enzymes and EKG did not show any acute changes. No evidence of a heart attack at this time. We reviewed the hospitalization and referred to previously In January 2024. Your cardiac enzymes at that time were not elevated there is no sign that you had a heart attack during that visit. Your stress test showed an area of decreased uptake in the septum but no reversible ischemia. 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 Stand Alone Forms: Work/School Release Print Language: Icelandic Coding Level of Care Code ED Lathe Operator for Talita Grullon
[2024-10-16 13:02] LABS: Alanine Aminotransferase 18 U/L (0-33); Albumin Level 4.1 g/dL (3.5-5.2); Alkaline Phosphatase 110 U/L (35-105); Anion Gap 20.1 (5-19); Aspartate Amino Transferase 20 U/L (0-32); Blood Urea Nitrogen 17 mg/dL (8-23); Calcium 9.0 mg/dL (8.5-10.5); Carbon Dioxide 17 mmol/L (22-29); Chloride 104 mmol/L (98-107); Creatinine Clr Calc Pharmacy 60.0104; Globulin 2.2 g/dL (1.3-4.6); Glucose 93 mg/dL (65-115); Lipase 20 U/L (13-60); Osmolality Calculated 285 mOsm/kg (285-295); Potassium 4.1 mmol/L (3.5-5.1); Sodium 137 mmol/L (136-145); Total Protein 6.3 g/dL (6.6-8.7)
[2024-10-16 13:03] LABS: Troponin(5th) Baseline 27 ng/L (0-10)
[2024-10-16 13:47] VITALS: BP 115/78; PULSE 72; RESP 17; O2SAT 98
--- NOTE | 2024-10-16 14:19 | ECG_ITS ---
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 Measurements Intervals [place] Rate: 58 P: 26 MO: 200 QRS: -30 QRSD: 78 T: 3 QT: 430 QTc: 425 Interpretive Statements SINUS BRADYCARDIA NONSPECIFIC T ABNORMALITIES, DIFFUSE LEADS BORDERLINE LEFT AXIS DEVIATION [QRS AXIS < -20] Compared to ECG 10/16/2024 12:03:21 NO SIGNIFICANT CHANGE Electronically Signed On 10-16-2024 14:25:32 CDT by Xiomara [email or web address]
[2024-10-16 14:49] VITALS: BP 112/73; PULSE 63; RESP 21; O2SAT 95
[2024-10-16 15:23] VITALS: BP 129/80; PULSE 63; RESP 18; O2SAT 97
[2024-10-16 15:29] LABS: Troponin 5 2HR 25.66 ng/L (0-10); Troponin 5 2HR Delta -1.34 ABS# (0-10)
[2024-10-16 15:55] VITALS: BP 133/74; PULSE 70; O2SAT 99
== END 2024-10-16 15:55 | disposition home or self-care (01) ==
PROVIDERS: Emergency Medicine; Emergency Provider Family Medicine; PCP Family Medicine
DX: R07.89 Other chest pain (principal); Z79.82 Long term (current) use of aspirin; E78.5 Hyperlipidemia, unspecified; I10 Essential (primary) hypertension
CPT/HCPCS: 36415; 71045; 80053; 83690; 84484; 85025; 93005; 99285